=== PATIENT | male | born 1975 | race Caucasian/White ===

== ENCOUNTER 2023-09-05 06:23 | Day surgery (SDC) | payer OTHER, SELFPAY ==
[2023-09-05] VITALS (8 sets, daily range): BP systolic 111–137; BP diastolic 68–82; BMI 26.3
[2023-09-05] MEDS: NORMOSOL-R 1000 IV (07:36)
[2023-09-05] MEDS: TYLENOL 1000 MG PO (07:37)
--- NOTE | 2023-09-05 11:31 | SUR.PHASEI ---
Rec'd sleepy on stretcher, arouses easily , oriented x 3 by RN reassured, pt asking if he has both kidneys, reassured, encouraged to sleep, snores lightly, IV infusing well, no crepitus felt in abd, chest
[2023-09-05] MEDS: SUBLIMAZE 25 MCG IV (11:41)
--- NOTE | 2023-09-05 11:48 | SUR.PHASEI ---
More alert, med for pain german well, reassured, pt appears anxious, very talkative, encouraged to relax and sleep, ice chips and oral care given german well
--- NOTE | 2023-09-05 12:05 | SUR.PHASEI ---
Awake, alert, german ice chips well
[2023-09-05] MEDS: ROXICODONE 5 MG PO (12:41)
== END 2023-09-05 13:15 | disposition home or self-care (01) ==
LOC: SDS 06:23
PROVIDERS: ATTENDING PHYSICIAN Surgery
DX: K40.20 Bilateral inguinal hernia, without obstruction or gangrene, not specified as recurrent (principal)
CPT/HCPCS: 49650; C1781